=== PATIENT | male | born 1960 | race Caucasian/White ===

== ENCOUNTER 2019-02-19 09:13 | Outpatient (CLI) | payer BC ==
--- NOTE | 2019-02-19 09:48 | CT ---
CT Abdomen Pelvis W Con History: [R 10.30 epigastric pain. Our 14 bloating.] Comparison: None. Findings: There is a 4 mm nodule within the right middle lobe. No pericardial effusion. No pleural ef fusion. Liver, gallbladder, spleen, pancreas are unremarkable. Adrenal glands are normal. The appendix is visualized and is normal. There are no dilated loops of large or small bowel. No retroperitoneal adenopathy. Aortoiliac contour is normal. Kidneys are unremarkable. No hydronephrosis. No acute osseous abnormality. Impression: No acute inflammatory process within the abdomen or pelvis. 4 mm nodule right middle lobe for which no follow-up is required in a low risk patient.
[2019-02-19] MEDS ORDERED: ISOVUE-370 76%-LOCM 1 ML ONE (10:59)
== END 2019-02-19 09:14 | disposition home or self-care (01) ==
LOC: BICCT 09:13
PROVIDERS: ATTEND Physician Assistant Medical
DX: Z12.11 Encounter for screening for malignant neoplasm of colon (principal); R14.0 Abdominal distension (gaseous); R10.30 Lower abdominal pain, unspecified; F41.9 Anxiety disorder, unspecified; R10.13 Epigastric pain; K21.9 Gastro-esophageal reflux disease without esophagitis; K64.9 Unspecified hemorrhoids; K58.9 Irritable bowel syndrome, unspecified; R07.89 Other chest pain; G47.30 Sleep apnea, unspecified
CPT/HCPCS: 74177; Q9966

== ENCOUNTER 2022-06-27 09:31 | Outpatient (CLI) | payer BC | END 2022-06-27 09:32 | disposition home or self-care (01) | LOC: BICCT 09:31 | PROVIDERS: ATTEND Internal Medicine Critical Care Medicine | DX: R91.1 Solitary pulmonary nodule (principal) | CPT/HCPCS: 71250 ==